=== PATIENT | female | born 1995 | race Caucasian/White ===

== ENCOUNTER → 2020-05-26 | Outpatient (CLI) | payer OTHER ==
[~2020-05-26] MED LIST: COLACE 100MG C100 MG PO; FEOSOL325 MG PO; IBUPROFEN600 MG PO; LORTAB 5-325 M1 EACH PO
== END ==
LOC: HEART CORB 10:00
DX: R94.31 Abnormal electrocardiogram [ECG] [EKG] (principal)
CPT/HCPCS: 93306

== ENCOUNTER → 2021-11-09 | Outpatient (CLI) | payer BC, OTHER ==
[~2021-11-09] MED LIST changes: +DOCUSATE SODIU100 MG PO; +HYDROCODON-ACE1 EAC4 PO; +PRENATAL VITAM1 EAC8 PO
[2021-11-09 14:20] LABS: HEMOGLOBIN 11.4 gm/dl (12.3-15.3); RED BLOOD COUNT 3.93 M/UL (4.00-5.10); WHITE BLOOD COUNT 9.3 K/UL (4.5-11.0)
== END ==
LOC: GENOP 13:30
PROVIDERS: Obstetrics & Gynecology
DX: Z01.812 Encounter for preprocedural laboratory examination (principal); O34.219 Maternal care for unspecified type scar from previous cesarean delivery
CPT/HCPCS: 81001; 85025

== ENCOUNTER 2021-11-10 04:59 | Inpatient (IN) | payer OTHER ==
[~2021-11-10] VITALS: Ht 175.3 cm; Wt 113.9 kg
[~2021-11-10 04:59] MED LIST changes: -DOCUSATE SODIU100 MG PO; -HYDROCODON-ACE1 EAC4 PO; -PRENATAL VITAM1 EAC8 PO
[2021-11-10] MEDS ORDERED: PRENATAL VITAM1 EAC8 PO (06:14)
[2021-11-10] MEDS ORDERED: DOCUSATE SODIU100 MG PO (10:34)
[2021-11-10] MEDS ORDERED: IBUPROFEN600 MG PO (10:34)
[2021-11-10] MEDS ORDERED: HYDROCODON-ACE1 EAC4 PO (10:34)
[2021-11-11 06:36] LABS: HEMOGLOBIN 11.1 gm/dl (12.3-15.3)
== END 2021-11-12 14:13 | disposition home or self-care (01) | DRG 788 ==
LOC: OB 04:59
PROVIDERS: ADMIT Obstetrics & Gynecology
PROC: 4A1HXCZ Monitoring of Products of Conception, Cardiac Rate, External Approach (ICD-10-PCS; 2021-11-10)
PROC: 10D00Z1 Extraction of Products of Conception, Low, Open Approach (ICD-10-PCS; principal; 2021-11-10 07:30)
DX: O34.211 Maternal care for low transverse scar from previous cesarean delivery (principal); Z3A.37 37 weeks gestation of pregnancy; Z37.0 Single live birth; O99.344 Other mental disorders complicating childbirth; F41.9 Anxiety disorder, unspecified; Z88.1 Allergy status to other antibiotic agents; Z88.2 Allergy status to sulfonamides; Z83.3 Family history of diabetes mellitus; Z82.49 Family history of ischemic heart disease and other diseases of the circulatory system
CPT/HCPCS: 36415; 82800; 85014; 85018; C9113; J1170; J1200; J1580; J2300; J2370; J2590